=== PATIENT | female | born 1975 | race Two or more races ===

== ENCOUNTER 2025-07-01 11:13 | Emergency (ER) | payer BC, OTHER ==
[~2025-07-01] VITALS: Ht 170.2 cm; Wt 75.9 kg
--- NOTE | 2025-07-01 12:08 | ED.PDOC ---
GI ASSESSMENT HPI Comments 49 year old female presents to the ED with a chief complaint of abdominal pain onset 1 day. Patient states he began experiencing abdominal pain 1 day ago, while she was laying down and was trying to eat and began experiencing nausea/vomiting. Patient woke up today, symptoms worsened, came to ED. She had partial hysterectomy 06/24/25 at [facility]. She smoked marijuana yesterday prior to symptoms. Denies fever. chills, nausea, vomiting, diarrhea, headache, dizziness, chest pain, shortness of breath. No other symptoms or modfiying factors present at this time. Chief Complaint: Abdominal Pain Time Seen by MD: 11:50 Reviewed Notes: Medications, Allergies Allergies: Coded Allergies: NO KNOWN ALLERGIES (Unverified , 07/01/25) Information Source: Patient, Relative Mode of Arrival: Ambulatory Timing: Days Duration: Since onset Prehospital treatment: None Quality: Sharp Severity: Moderate Recent: None Recent Hx of: None Pain Location: Diffuse Modifying Factors: Nothing Associated sign and symptoms: Nausea, Vomiting, Abdominal Pain Past Medical History PAST MEDICAL HISTORY: Denies Surgical History: Hysterectomy PNEUMATIC HOIST OPERATOR History: No Pertinent PNEUMATIC HOIST OPERATOR History Family History Family History: Reviewed,noncontributory to illness, No family hx of Cancer, No family hx of DM, No family hx of Heart suzie, No family hx of HTN, No family hx ofKidney suzie, No family hx of Liver suzie, No family hx of Lung suzie, No family hx of Stroke Social History Smoker: Non-Smoker Alcohol: Denies ETOH Use Drugs: Marijuana Lives In: Home Constitutional: denies: chills, diaphoresis, fatigue, fever, malaise, sweats, weakness, others EENTM: denies: blurred vision, double vision, ear bleeding, ear discharge, ear drainage, ear pain, ear ringing, eye pain, eye redness, hearing loss, mouth pain, mouth swelling, nasal discharge, nose bleeding, nose congestion, nose pain, photophobia, tearing, throat pain, throat swelling, voice changes, others Respiratory: denies: cough, hemoptysis, orthopnea, SOB at rest, shortness of breath, SOB with excertion, stridor, wheezing, others Cardiovascular: denies: chest pain, dizzy spells, diaphoresis, Dyspnea on exertion, edema, irregular heart beat, left arm pain, lightheadedness, palpitations, PND, syncope, others Gastrointestinal: reports: abdominal pain, nausea, vomiting; denies: abdomen distended, blood streaked bowels, constipated, diarrhea, dysphagia, difficulty swallowing, hematemesis, melena, poor appetite, poor fluid intake, rectal bleeding, rectal pain, others Genitourinary: denies: abnormal vagina bleeding, burning, dyspareunia, dysuria, flank pain, frequency, hematuria, incontinence, pain, , vagina discharge, urgency, others Neurological: denies: dizziness, fainting, headache, left sided numbness, left sided weakness, numbness, paresthesia, pre-existing deficit, right sided numbness, right sided weakness, seizure, speech problems, tingling, tremors, weakness, others Musculoskeletal: denies: back pain, gout, joint pain, joint swelling, muscle pain, muscle stiffness, neck pain, others Integumetry: denies: bruises, change in color, change in hair/nails, dryness, laceration, lesions, lumps, rash, wounds, others Allergic/Immunocompromised: denies: Difficulty Healing, Frequent Infections, Hives, Itching, others Hematologic/Lymphatic: denies: anemia, blood clots, easy bleeding, easy bruising, swollen glands, others Endocrine: denies: excessive hunger, excessive sweating, excessive thirst, excessive urination, flushing, intolerance to cold, intolerance to heat, unexplained weight gain, unexplained weight loss, others Psychiatric: denies: anxiety, bipolar disorder, depression, hopeless, panic disorder, schizophrenia, sleepless, suicidal, others All Other Systems: Reviewed and Negative Physical Exam General Appearance: Normal HEENT: Normal ENT Inspection, Pharynx Normal, TMs Normal Neck: Full Range of Motion, Non-Tender, Normal, Normal Inspection Respiratory: Chest Non-Tender, Lungs Clear, No Accessory Muscle Use, No Respiratory Distress, Normal Breath Sounds Cardiovascular: No Edema, No JVD, No Murmur, No Gallop, Normal Peripheral Pulses, Regular Rate/Rhythm Breast Exam: Deferred Gastrointestinal: No Organomegaly, Non Tender, No Pulsatile Mass, Normal Bowel Sounds, Soft Genitalia: Deferred Pelvic: Deferred Rectal: Deferred Extremities: No calf tenderness, Normal capillary refill, Normal inspection, Normal range of motion, Non-tender, No pedal edema Musculoskeletal : Apperance: Normal Neurologic: Alert, tv news director II-XII nml as Tested, No Motor Deficits, Normal Affect, Normal Mood, No Sensory Deficits Cerebellar Function: Normal Reflexes: Normal Skin: Dry, Normal Color, Warm Lymphatic: No Adenopathy Was a procedure done? Was a procedure done?: No GI differential Dx Differential Diagnosis: Gastritis/PUD, Ischemic Bowel, Electrolyte Imbalance, Other (Postoperative intra-abdominal abscess versus postoperative ileus versus postoperative SBO) X-Ray, Labs, Meds, VS Vital Signs Date Time Temp Pulse Resp B/P (MAP) Pulse Ox O2 Delivery O2 Flow Rate FiO2 07/01/25 17:27 74 18 140/72 (94) 07/01/25 17:19 77 103/70 07/01/25 16:48 74 18 140/72 07/01/25 16:28 74 18 98 Room Air* 0 21 07/01/25 16:19 74 208/111 07/01/25 16:18 74 18 208/111 07/01/25 15:38 97.9 84 17 196/121 (146) 98 97.9 07/01/25 13:52 85 18 193/129 07/01/25 13:10 83 19 214/132 07/01/25 12:53 83 20 97 Room Air 07/01/25 12:53 97.9 83 20 214/132 (159) 97 97.9 07/01/25 11: 97.6 75 18 199/110 99 97.6 Lab Test 07/01/25 16:07 07/01/25 13:09 Range/Units Urine Color Light-yellow Yellow Urine Clarity Clear Clear Urine pH 6.0 5.0-9.0 Urine Specific Ponce 1.041 H 1.001-1.035 Urine Protein Negative Negative Urine Ketones 1+ H Negative Urine Blood 1+ H Negative /uL Urine Nitrite Negative Negative Urine Bilirubin Negative Negative Urine Urobilinogen Normal Negative mg/dL Urine Leukocyte Esterase 2+ Negative /uL Urine RBC 4 0 - 4 /hpf Urine Microscopic WBC 11 H 0-5 /HPF Urine Squamous Epithelial Cells Few <5 /hpf Urine Bacteria Few H None Seen /hpf Urine Glucose Normal Normal mg/dL White Blood Count 9.9 4.4-10.8 10^3/uL Red Blood Count 5.47 H 4.0-5.20 10^6/uL Hemoglobin 17.0 H 12.2-16.2 g/dL Hematocrit 50.7 H 36.0-46.0 % Mean Corpuscular Volume 92.8 80.0-100.0 fL Mean Corpuscular Hemoglobin 31.0 28.0-32.0 pg Mean Corpuscular Hemoglobin Concent 33.4 32.0-36.0 g/dL Red Cell Distribution Width 17.9 H 11.8-14.3 % Platelet Count 300 140-450 10^3/uL Mean Platelet Volume 8.3 6.9-10.8 fL Neutrophils (%) (Auto) 68.2 37.0-80.0 % Lymphocytes (%) (Auto) 22.1 10.0-50.0 % Monocytes (%) (Auto) 8.6 0.0-12.0 % Eosinophils (%) (Auto) 0.6 0.0-7.0 % Basophils (%) (Auto) 0.5 0.0-2.0 % Neutrophils # (Auto) 6.7 1.6-8.6 10 ^3/uL Lymphocytes # (Auto) 2.2 0.4-5.4 10 ^3/uL Monocytes # (Auto) 0.8 0-1.3 10 ^3/uL Eosinophils # (Auto) 0.1 0-0.8 10 ^3/uL Basophils # (Auto) 0 0-0.2 10 ^3/uL Nucleated Red Blood Cells 0.1 % Sodium Level 138 136-145 mmol/L Potassium Level 3.5 3.5-5.1 mmol/L Chloride Level 97 L 98-107 mmol/L Carbon Dioxide Level 23 20-31 mmol/L Anion Gap 18 H 5-15 Blood Urea Nitrogen 17 9-23 mg/dL Creatinine 1.36 H 0.550-1.02 mg/dL Glomerular Filtration Rate Calc 47 >90 mL/min BUN/Creatinine Ratio 12.5 10.0-20.0 Serum Glucose 103 74-106 mg/dL Calcium Level 11.2 H 8.7-10.4 mg/dL Troponin I High Sensitivity 12 </=34 ng/L Current Medications Medications (Trade) Dose Ordered Sig/Mark Route Start Time Stop Time Status Last Admin Ondansetron HCl (Zofran) 4 mg ONCE ONCE IV 07/01/25 12:15 07/01/25 12:16 DC 07/01/25 13:10 Sodium Chloride 1,000 ml @ 1,000 mls/hr Q1H ONCE IV 07/01/25 12:15 07/01/25 13:14 DC 07/01/25 13:08 Morphine Sulfate 4 mg ONCE ONCE IV 07/01/25 12:15 07/01/25 12:16 DC 07/01/25 13:10 Morphine Sulfate 4 mg ONCE ONCE IV 07/01/25 15:45 07/01/25 15:46 DC 07/01/25 16:18 Famotidine (Pepcid Injection) 20 mg ONCE ONCE IV 07/01/25 15:45 07/01/25 15:46 DC 07/01/25 16:27 Labetalol HCl (Labetalol HCl) 20 mg ONCE ONCE IV 07/01/25 16:00 07/01/25 16:01 DC 07/01/25 16:19 Time of 1ST Reevaluation: 12:20 Reevaluation 1ST: Unchanged Time of 2ND Reevaluation: 17:43 Reevaluation 2ND: Improved Patient Education/Counseling: Diagnosis, Treatment, Prognosis Family Education/Counseling: Diagnosis, Treatment, Prognosis SEPSIS Sepsis Screen Date sepsis recognized/suspect: Jul 01, 2025 Time Sepsis recognized/suspect: 112 Recent Procedure: No On Antibiotic Therapy: No Respiratory Rate >20: No Heart Rate >90: No Temp<36 C (96.8 F) or >38.3 C: No SBP <90 or MAP <65 mmHG: No New Acute Mental Status Change: No Is the patient on CPAP, BIPAP,: No Physician Orders Ct Ab Pel With Iv Con Only (07/01/25 12:01) Vital Signs Date Time Temp Pulse Resp B/P (MAP) Pulse Ox O2 Delivery O2 Flow Rate FiO2 07/01/25 17:27 74 18 140/72 (94) 07/01/25 17:19 77 103/70 07/01/25 16:48 74 18 140/72 07/01/25 16:28 74 18 98 Room Air* 0 21 07/01/25 16:19 74 208/111 07/01/25 16:18 74 18 208/111 07/01/25 15:38 97.9 84 17 196/121 (146) 98 97.9 07/01/25 13:52 85 18 193/129 07/01/25 13:10 83 19 214/132 07/01/25 12:53 83 20 97 Room Air 07/01/25 12:53 97.9 83 20 214/132 (159) 97 97.9 07/01/25 11: 97.6 75 18 199/110 99 97.6 Laboratory Tests Test 07/01/25 13:09 White Blood Count 9.9 10^3/uL (4.4-10.8) Medications Medications Dose Ordered Sig/Mark Route Start Time Stop Time Status Last Admin Dose Admin Famotidine 20 mg ONCE ONCE IV 07/01/25 15:45 07/01/25 15:46 DC 07/01/25 16:27 Labetalol HCl 20 mg ONCE ONCE IV 07/01/25 16:00 07/01/25 16:01 DC 07/01/25 16:19 Morphine Sulfate 4 mg ONCE ONCE IV 07/01/25 12:15 07/01/25 12:16 DC 07/01/25 13:10 Morphine Sulfate 4 mg ONCE ONCE IV 07/01/25 15:45 07/01/25 15:46 DC 07/01/25 16:18 Ondansetron HCl 4 mg ONCE ONCE IV 07/01/25 12:15 07/01/25 12:16 DC 07/01/25 13:10 Sodium Chloride 1,000 ml @ 1,000 mls/hr Q1H ONCE IV 07/01/25 12:15 07/01/25 13:14 DC 07/01/25 13:08 Departure 1 Departure Time of Disposition: 17:44 (49 year old female presents to the ED with a chief complaint of abdominal pain, nausea and vomiting over the past day. Patient just had hysterectomy 1 week ago. She states that all day she has been unable to hold anything down. However, is still taking her oxycodone on an empty stomach. Given the recent surgery consider a postoperative ileus versus small- bowel obstruction versus intra-abdominal abscess. CBC with no critical leukocytosis or significant anemia. Despite a vomiting all day she has no evidence of any acute electrolyte abnormalities or acute kidney insufficiency. CT of the abdomen and pelvis was performed which shows that the patient had some pneumoperitoneum, related to recent surgical intervention. Also has some blood products near site of surgery. Has no organized fluid collection, fat stranding, findings to suggest postoperative infection. CT also shows likely gastritis. Was treated for symptoms with 1 L normal saline IV fluid bolus, give n couple rounds of IV morphine, IV Zofran, IV Pepcid for abdominal pain and vomiting. Blood pressure also became elevated, had not taken her blood pressure medications all day, was given a 1 time dose of IV labetalol with improvement of blood pressure. Labs with no evidence of acute end-organ damage. Patient is here for several hours with no further episodes of vomiting. Able to tolerate oral intake without further exacerbation. She is stable for discharge for further outpatient symptomatic management. Will be given a prescription for Pepcid, Maalox, Zofran. Is scheduled to follow up with her form setter helper in 3 days. Has been provided a copy of her CT scan to share with them.) Impression: Primary Impression: Abdominal pain Additional Impressions: Nausea and vomiting Gastritis Disposition: HOME / SELF CARE / HOMELESS Condition: Stable Additional Instructions: A CT scan of your abdomen and pelvis was performed which shows normal postoperative pneumoperitoneum and blood products near your site of your prior surgery. However, no signs of active extravasation. No organized fluid collection suggesting abscess, no findings of bowel obstruction or ileus. You did have findings of gastritis. You were being given a prescription for Pepcid, Maalox, Zofran to take as needed for abdominal pain and nausea. Return to any emergency department for worsening symptoms despite outpatient management. e-Prescriptions Alum & Mag Hydrox-Simethicone (Maalox Plus) 30 Ml Ss 30 ML PO Q8HPRN PRN for 5 Days, #240 ML Prov: TORIN KEMP MD 07/01/25 Ondansetron Odt 4MG Tab (ZOFRAN PO) 4 Mg Tb 4 MG PO Q6HP PRN for 5 Days, #20 TAB ODT TAB-DISSOLVE IN MOUTH, THEN SWALLOW Prov: TORIN KEMP MD 07/01/25 Famotidine (PEPCID TABLET) 20 Mg Tb 1 TAB PO DAILY for 30 Days, #30 TAB 5 Refills Prov: TORIN KEMP MD 07/01/25 Discharged With: Self Critical Care Note Critical Care Time?: No Stability Stability form required: No Heart Score Heart Score: Heart Score Response (Comments) Value History N/A 0 EKG N/A 0 Age N/A 0 Risk Factors N/A 0 Troponin N/A 0 Total 0 I personally scribed for EBONI SAAB MD ([email or web address]) on 07/01/25 at 12:08. Electronically submitted by Angelica Cisneros ([email or web address]). EBONI SAAB MD Jul 01, 2025 12:08 TORIN KEMP MD Jul 01, 2025 17:55
[2025-07-01] MEDS: SODIUM CHLORIDE 0.9% 1,000 ML IV ONE (13:08)
[2025-07-01] MEDS: MORPHINE SULFATE 4 MG/ML SYR/VIAL IV ONE ×2 (13:10→16:18)
[2025-07-01] MEDS: ONDANSETRON HCL 4 MG/2 ML VIAL IV ONE (13:10)
[2025-07-01 13:30] LABS: Hematocrit 50.7 % (36.0-46.0); Hemoglobin 17.0 g/dL (12.2-16.2); Mean Corpuscular Hemoglobin 31.0 pg (28.0-32.0); Mean Corpuscular Volume 92.8 fL (80.0-100.0); Nucleated Red Blood Cells % 0.1 %
[2025-07-01 13:41] LABS: Sodium 138 mmol/L (136-145)
[2025-07-01 13:42] LABS: Carbon Dioxide 23 mmol/L (20-31)
[2025-07-01 13:43] LABS: Anion Gap 18 (5-15); Calcium 11.2 mg/dL (8.7-10.4); Chloride 97 mmol/L (98-107); Potassium 3.5 mmol/L (3.5-5.1)
[2025-07-01 13:47] LABS: BUN/Creatinine Ratio 12.5 (10.0-20.0); Blood Urea Nitrogen 17 mg/dL (9-23); Glucose 103 mg/dL (74-106)
[2025-07-01] MEDS: IOHEXOL 300 MG/ML 100ML BOTTLE IJ ONE (14:54)
[2025-07-01 15:38] VITALS: TEMP 97.9
--- NOTE | 2025-07-01 15:43 | DVH ---
Exam: CT CT AB PEL WITH IV CON ONLY History: abdominal pain, hysterectomy last week Comparison Study: None TECHNIQUE: Multidetector CT of the abdomen pelvis with IV contrast. Axial, coronal and sagittal multiplanar reformats were obtained from the axial data set by the technologist. Radiation Dose Information: CT Dose: CTDI volume is 9.35 mGy. Dose-length product is 496.19 mGy*cm FINDINGS: Bibasilar linear atelectasis. Partially visualized heart is unremarkable. Mild hepatic steatosis. Otherwise, liver, spleen, pancreas and adrenal glands unremarkable. Gallbladder septation. Otherwise, the gallbladder is unremarkable. Right renal cysts measuring up to 1.5 cm. Otherwise, kidneys, and ureters unremarkable. Urinary bladder is mildly distended. Otherwise unremarkable. Uterus not well-visualized with provided history of hysterectomy . ill-defined heterogeneous density /collection over the expected area of the Uterus which may represent blood products /fluid associated with Postsurgical changes. Mild gastric wall thickening. Small bowel loops unremarkable. Appendix is not well-visualized with a visualized appendix unremarkable without complete visualization of the appendix can not exclude acute appendicitis. Large bowel is unremarkable. Mild pneumoperitoneum most prominent within the left [id number]-right pelvis and left hemiabdomen which is most likely from the recent hysterectomy. No evidence of aortic aneurysm or dissection. Mild atherosclerotic calcification of the aorta and bilateral iliacs. Shotty retroperitoneal lymph nodes which may be reactive. Small fat and air containing left inguinal hernia. There is foci of air within the [id number]-right lower Chest and ventral abdominal soft tissues which is most likely associated with the recent surgery. No evidence of acute osseous abnormalities. IMPRESSION: Pneumoperitoneum with air within the [id number]-right ventral lower chest and abdominal griffin which is most likely associated with the recent surgery. Heterogeneous ill-defined density posterior to the Urinary bladder which may represent complex Fluid/ blood products associated with the recent surgery. No active extravasation. Mild gastritis.
[2025-07-01] MEDS: LABETALOL HCL 20 MG/4 ML VL IV ONE (16:19)
[2025-07-01] MEDS: FAMOTIDINE (10MG/ML) 2ML VL IV ONE (16:27)
[2025-07-01 16:28] VITALS: PULSE 74; RESP 18; O2SAT 98
[2025-07-01 16:33] LABS: Urine Protein, UAD Negative (Negative)
[2025-07-01 17:27] VITALS: BP 140/72; PULSE 74; RESP 18
[2025-07-01] MEDS ORDERED: ZOFR4T PO (18:11)
[2025-07-01] MEDS ORDERED: FAMO20TA10 PO (18:11)
[2025-07-01] MEDS ORDERED: MAA30LQ PO (18:11)
== END 2025-07-01 18:23 | disposition home or self-care (01) ==
LOC: ER 11:13
DX: K29.70 Gastritis, unspecified, without bleeding (principal); Z90.711 Acquired absence of uterus with remaining cervical stump
CPT/HCPCS: 36415; 74177; 80048; 81001; 84484; 85025; 96361; 96374; 96375; 96376; 99285; J2270; J2405; J3490; J7030; Q9967